=== PATIENT | female | born 1970 | race Asian ===

== ENCOUNTER 2024-05-19 00:39 | Emergency (ER) | payer MEDICAID, SELFPAY ==
[2024-05-19] VITALS (11 sets, daily range): BP systolic 116–189; BP diastolic 75–112; PULSE 74–120; RESP 16–22; TEMP 36.4–37; O2SAT 96–100; BMI 28.4
--- NOTE | 2024-05-19 00:43 | PC.NURSE ---
CHARGE NURSE AWARE OF BP 188/122.
--- NOTE | 2024-05-19 03:14 | EKG_ITS ---
[facility] Test Date: 2024-05-19 Pat Name: SHANTEL WADDELL Department: Room: - Gender: Female [employer] Worker: : 1970 Requested By: Eduardo Booker Order Number: [id number] Reading MD: Eduardo Booker Measurements Intervals [place] Rate: 104 P: 45 MI: 131 QRS: 6 QRSD: 81 T: 1 QT: 344 QTc: 453 Interpretive Statements SINUS TACHYCARDIA POSSIBLE LEFT ATRIAL ENLARGEMENT [-0.1mV P WAVE IN V1/V2] POSSIBLE LEFT VENTRICULAR HYPERTROPHY [VOLTAGE CRITERIA PLUS LAE OR QRS WIDENING] NONSPECIFIC T-WAVE ABNORMALITY Compared to ECG 02/10/2024 03:03:56 No significant changes /store/S0/[id number]/ecg/[id number].pdf
--- NOTE | 2024-05-19 03:14 | EDRME_ITS ---
Rapid Medical Screening Exam [facility] Arrival date/time: 05/19/24 00:39 53F with history of HTN presents to ED with 2 days of N/V, gen ab pain/cramping, and non-bloody diarrhea, as well as some weakness and SOB. Chief Complaint: Abdominal Pain Vital signs: Vital Signs Temperature 98.6 F 05/19/24 02:44 Pulse Rate 106 H 05/19/24 02:44 Respiratory Rate 16 05/19/24 02:44 Blood Pressure 162/112 H 05/19/24 02:44 Pulse Oximetry (%) 97 05/19/24 02:44 Oxygen Delivery Method Room Air 05/19/24 02:44
--- NOTE | 2024-05-19 03:15 | XR_ITS ---
Examination: PA chest single view Technique: Upright PA chest single view Exam date and time: May 19, 2024 at 0329 hrs. Indications: Vomiting shortness of breath nausea weakness today Findings: Normal heart size The lungs are clear. The osseous structures are intact Impression: No active disease
[2024-05-19] MEDS: METOCLOPRAMIDE 5 MG TABLET 10 MG PO (03:38)
[2024-05-19 03:48] LABS: Lactate (Lactic Acid) 2.4 mMol/L (0.4-2.0)
[2024-05-19 03:57] LABS: Basophils # (Auto) 0.1 Thou/mm3 (0.0-0.2); Basophils % (Auto) 1 % (0-2.5); Eosinophils # (Auto) 0.3 Thou/mm3 (0.0-0.5); Eosinophils % (Auto) 3 % (0-10); Hematocrit 44.5 % (36.0-46.0); Hemoglobin 15.5 g/dL (12.0-16.0); Immature Granulocytes % (Auto) 0 % (0-0); Immature Granulocytes Auto 0.02 Thou/mm3 (0.00-0.00); Lymphocytes # (Auto) 2.7 Thou/mm3 (1.0-4.8); Lymphocytes % (Auto) 31 % (10-50); Mean Corpuscular HGB Conc 34.8 g/dl (31.0-37.0); Mean Corpuscular Hemoglobin 34.6 pg (25.0-35.0); Mean Corpuscular Volume 99 fL (80-100); Monocytes # (Auto) 0.7 Thou/mm3 (0.0-0.8); Monocytes % (Auto) 8 % (0-12); Neutrophils # (Auto) 5.2 Thou/mm3 (1.8-7.7); Neutrophils % (Auto) 58 % (37-80); Nucleated Red Blood Cell % 0 /100 WBC (0); Platelet Count 255 Thou/mm3 (140-440); RDW Standard Deviation 44.8 fL (36.4-46.3); Red Blood Count 4.48 Miln/mm3 (4.00-5.20)
[2024-05-19 04:19] LABS: Alanine Aminotransferase 127 U/L (10-49); Albumin, Serum 4.6 gm/dL (3.5-5.0); Albumin/Globulin Ratio 1.4 (1.2-2.2); Alkaline Phosphatase 83 U/L (46-116); Anion Gap 21 (7-16); Aspartate Amino Transferase 245 U/L (0-34); BUN/Creatinine Ratio 20 Ratio (12-20); Bilirubin,Total 1.5 mg/dL (0.3-1.2); Blood Urea Nitrogen 16 mg/dL (9-23); Calcium 9.3 mg/dL (8.3-10.6); Calcium (Corrected) 9.3 mg/dL (8.5-10.1); Chloride 103 mMol/L (98-107); Creatinine (Component) 0.8 mg/dL (0.6-1.3); Estimated Creatinine Clearance 59.3 mL/min (>60); Globulin 3.2 gm/dL (2.3-3.5); Glucose 79 mg/dL (74-106); Lipase 41 U/L (12-53); Osmolality,Calculated 274 (275-295); Potassium 3.7 mMol/L (3.4-5.1); Sodium 137 mMol/L (136-145); Total Protein 7.8 gm/dL (5.7-8.2); Troponin I 0.038 ng/mL (0.0-0.045); eGFR > 60 See Note
[2024-05-19 04:20] LABS: Procalcitonin 0.17 ng/ml (0.0-0.49)
[2024-05-19 04:21] LABS: Carbon Dioxide 13.1 mMol/L (20.0-31.0)
[2024-05-19 04:34] LABS: Collection Type, Urine Clean Catch
[2024-05-19 04:41] LABS: Base Excess, Venous -4 (-3-3); O2 Saturation, Venous 60 % (96-97); PCO2, Venous 35 mmHg (36-56); PO2, Venous 33 mmHg (15-58); pH, Venous 7.38 (7.33-7.66)
[2024-05-19 04:46] LABS: Amphetamine/Methamp Scrn,U Negative (Negative); Barbiturate Screen,Urine Negative (Negative); Benzodiazepines Screen,Urine Negative (Negative); Benzoylecgonine Screen, Ur Negative (Negative); Fentanyl Screen,Urine Negative (Negative); Opiate Screen,Urine Negative (Negative); THC Screen,Urine Negative (Negative)
[2024-05-19 04:54] LABS: Bacteria,Urine Rare; Bilirubin,Urine Negative (Negative); Blood,Urine Negative (Negative); Clarity,Urine Clear (Clear/Hazy); Color,Urine Yellow (Lt Yel-Yel); Glucose, Urine Negative (Negative); Hyaline Casts,Urine < 1 /hpf (0-1); Ketones,Urine 1+ (Negative); Leukocyte Esterase,Urine Negative (Negative); Nitrite,Urine Negative (Negative); PH,Urine 5.5 (5.0-7.0); Protein,Urine 1+ (Neg - Trace); RBC,Urine 5 /hpf (0-3); Specific Gravity,Urine 1.031 (1.001-1.035); Squamous Epithelial Cell,Urine 2 /hpf (0-5); Urobilinogen,Urine Negative mg/dL (0.0-1.0); WBC,Urine 7 /hpf (0-5)
[2024-05-19 06:46] LABS: Reflex Lactate? Y
[2024-05-19 07:12] LABS: Lactic Acid, 3 HR 1.5 mMol/L (0.4-2.0)
[2024-05-19] MEDS: RINGERS LACTATED 1000 ML 1,000 ML 999 ML IV (09:07)
--- NOTE | 2024-05-19 14:37 | PC.NURSE ---
patient from rme to rm 19 with c/o abd. pain, n/v/d since midnight. Currently patient denies having abd. pain, however, patient states she continues to have diarrhea, patient placed in gown and new orders received by provider.
[2024-05-19] MEDS: LABETALOL INJ 5 MG/ML VIAL 20 ML 20 MG IVP (14:41)
--- NOTE | 2024-05-19 15:45 | EDNOTE_ITS ---
ED Abdominal Pain RME/HPI General Chief Complaint: Abdominal Pain Stated complaint: ABD PAIN, NAUSEA AND VOMITING X 1DAY Time seen by provider: 05/19/24 14:23 Arrival date/time: 05/19/24 00:39 RME / HPI RME / HPI narrative: 05/19/24 00:39 53F with history of HTN presents to ED with 2 days of N/V, gen ab pain/cramping, and non-bloody diarrhea, as well as some weakness and SOB. DR. KOCH MAIN ED EVALUATION: 53 year old female presents to the Emergency Department [facility] with complaints of diffuse abdominal pain with associated nausea, vomiting, non-bloody diarrhea, and generalized weakness. Symptoms are moderate. Onset of symptoms 1 day. PMHx: Hypertension Social Hx: No tobacco, alcohol, or substance use. Related Data Home Medications ?Medication ?Instructions ?Recorded ?Confirmed hydroxyzine HCl 25 mg tablet 25 mg PO TID PRN Anxiety 02/10/24 02/10/24 Allergies Allergy/AdvReac Type Severity Reaction Status Date / Time No Known Allergies Allergy Verified 02/10/24 02:46 Review of Systems Review of Systems Systems Reviewed: All systems reviewed, normal except as documented Narrative Review of Systems: GEN: No fever, no chills, no weight loss EYES: No discharge, no visual changes, no pain HEENT: No ear pain, no congestion, no sore throat PULM: No shortness of breath, no cough, no congestion CV: No chest pain, no dyspnea on exertion, no palpitations GI: + nausea, + vomiting, + diarrhea, + diffuse abdominal pain, no constipation : No frequency, no urgency and no dysuria MUSC/SKEL: No joint pain, no back pain SKIN: No rash PSYCH: No hallucinations, no depression HEME/LYMPH: No easy bleeding or bruising tendencies NEURO: + generalized weakness, no headache Past Medical History Past Medical History NEUROLOGIC: Negative Neurological Disorders, Cerebrovascular Accident, Transient Ischemic Attacks (TIA), Dementia, Alzheimer's Disease, Parkinson's Disease, Brain Tumor, Meningitis, Seizures, Epilepsy, Multiple Sclerosis, Cerebral Palsy, Amyotrophic Lateral Sclerosis (ALS/Joelle Gehrig's), Guillain-J[place] Syndrome, Spina Bifida, Paralysis, Peripheral Neuropathy, Koch's Palsy, Subdural Hematoma, Migraine, Head Trauma, Spinal Cord Injury or Traumatic Brain Injury CARDIAC: Positive Cardiac Disorders and Hypertension RESPIRATORY: Negative Chronic Obstructive Pulmonary Disease (COPD), Asthma, Bronchitis, Emphysema, Pneumonia, Pulmonary Fibrosis, Cystic Fibrosis, Tuberculosis, Pulmonary Embolism, Pulmonary Edema or Sleep Apnea GASTROINTESTINAL: Negative Gastrointestinal Disorders, Hepatitis, Cirrhosis, P ancreatitis, Celiac Disease, Gall Bladder Disease, Gastrointestinal Bleed, Esophageal Varices, Pan's Esophagus, Colitis, Ulcerative Colitis, Diverticulitis, Diverticulosis, Ulcer, Colorectal Cancer, Irritable Bowel, Crohn's Disease, Obstructive Bowel, Hiatal Hernia, Hemorrhoids or Gastroesophageal Reflux Disease GENITOURINARY: Positive Genitourinary Disorders and Kidney Stones REPRODUCTIVE: Negative Breast Cancer, Endometriosis, Genital Herpes, Gonorrhea, Pelvic Inflammatory Disease, Previous Pregnancies, Syphilis or Uterine Prolapse MUSCULOSKELETAL: Negative Musculoskeletal Disorders, Muscular Dystrophy, Myasthenia Gravis, Marfan's Syndrome, Bone Cancer, Arthritis, Rheumatoid Arthritis, Osteoporosis, Degenerative Disk Disease, Gout, Scoliosis, Carpal Tunnel Syndrome, Fibromyalgia, Fractures, Degenerative Joint Disease, Osteomyelitis or Poliovirus ENT: Negative Cataracts, Glaucoma, Blind, Retinal Detachment, Macular Degeneration, Ear Infection, Deafness, Head Trauma or Eye Prosthesis ENDOCRINE: Negative Endocrine Disorders, Diabetes Mellitus Type 1, Diabetes Mellitus Type 2, Hypoglycemia, [place]'s Syndrome, [place]'s Disease, Hyperthyroidism, Hypothyroidism, Parathyroid Disease, Pituitary Disease, Systemic Lupus Erythematosus, Syndrome of Inappropriate Antidiuretic Hormone (SIADH), Adrenal Disease or Graves' Disease HEMATOLOGIC: Negative Blood Disorders, Anemia, Leukemia, Hemophilia, Thalassemia or Sickle Cell Disease PSYCHO/SOCIAL: Positive Anxiety OTHER HISTORY: Positive Blood Transfusions; Negative Breast Cancer or Colorectal Cancer Family History FAMILY HISTORY: Negative Family Psychiatric Problems, Family Respiratory Disorders, Family Cardiac Disorders, Family Gastrointestinal Problems, Family Cancer, Family Surgery or Family Anesthesia Reaction Surgical History SURGICAL: Positive Ear Surgery and Nephrectomy (kidney stone removal) Social History SMOKING STATUS: Never smoker SUBSTANCE USE: does not use ALCOHOL: Never ED Exam Narrative Physical exam: GENERAL APPEARANCE: alert and oriented x 4, well-developed, well-nourished, no acute distress VITALS: All vitals were reviewed and the pulse ox is 99% on room air, which is normal according to my interpretation. HEENT: Normocephalic, atraumatic; pupils equal, round, reactive to light; EOMI; mucous membranes pink, moist; oropharynx clear NECK: Supple LUNGS: CTABL; no wheezes, no rales, no rhonchi HEART: Regular rate, regular rhythm; normal S1, S2; no murmurs ABDOMEN: non distended; normal BS; soft, no tenderness, no guarding, no rebound; no masses, no organomegaly, no hernia BACK: no CVA tenderness EXTREMITIES: atraumatic; no edema NEUROLOGIC: awake; alert and oriented x4; cranial nerves II-XII grossly intact; no focal sensory or motor deficits PSYCHIATRIC: appropriate mood and affect SKIN: warm, dry, normal color; no rashes Course Quality Measures none Orders Category Date Time Status EKG (ED ONLY) *Do not use* NOW Care 05/19/24 03:14 Completed Insert IV NOW Care 05/19/24 04:32 Completed EKG (ED Only) Stat Exams 05/19/24 03:14 Draft XR chest 1V portable Stat Exams 05/19/24 03:15 Completed CBC Stat Lab 05/19/24 03:20 Completed Comprehensive Metabolic Panel Stat Lab 05/19/24 03:20 Completed Drug Screen,Urine Stat Lab 05/19/24 04:28 Completed Lactate (Lactic Acid) Stat Lab 05/19/24 03:20 Completed Lactic Acid, 3 HR Stat Lab 05/19/24 07:03 Completed Lipase Stat Lab 05/19/24 03:20 Completed Procalcitonin Stat Lab 05/19/24 03:20 Completed Troponin I Stat Lab 05/19/24 03:20 Completed Urinalysis Stat Lab 05/19/24 04:28 Completed VBG [Venous Blood Gas] Stat Lab 05/19/24 03:20 Completed Labetalol IV [Trandate IV] Med 05/19/24 14:27 Discontinued 20 mg IVP X1 ONE Labetalol IV [Trandate IV] Med 05/19/24 14:57 Discontinued 20 mg IVP X1 ONE Metoclopramide [Reglan] Med 05/19/24 03:14 Discontinued 10 mg PO X1 ONE POTASSIUM CHL 10 mEq IVPB [Kcl Ivpb] Med 05/19/24 14:27 Discontinued 10 meq in 100 ml IV Q1H Ringers Lactated 1000 ml [Lactated Ringers] 1,000 ml Med 05/19/24 04:34 Discontinued IV 999 mls/hr Sodium Chloride 0.9% 1000 ml [Ns] 1,000 ml Med 05/19/24 15:38 Discontinued IV 999 mls/hr cloNIDine HCL [Catapres] Med 05/19/24 16:09 Discontinued 0.2 mg PO X1 ONE Vital Signs Vital signs: Vital Signs Temperature 98.6 F 05/19/24 02:44 Pulse Rate 106 H 05/19/24 02:44 Respiratory Rate 16 05/19/24 02:44 Blood Pressure 162/112 H 05/19/24 02:44 Pulse Oximetry (%) 97 05/19/24 02:44 Oxygen Delivery Method Room Air 05/19/24 02:44 Abdominal Pain MDM Patient data External records reviewed:: [facility] previous records (Reviewed last admission discharge dated 02/12/24, patient admitted for the following: Acute hypokalemia.) and EMS form Clinical information provided by:: patient and EMS Social determinants that could affect healthcare access:: none Patient has the following chronic illnesses:: Hypertension How is presenting disease/condition affected by chronic disease/condition?: uneffected by Evaluation data The following diagnostics were reviewed and interpreted by me:: lab results, radiology exam(s) and EKG tracing(s) (sinus tachycardia, rate 104, possible left ventricular hypertrophy, no STEMI) Lab and/or radiology exams considered but not ordered:: none Interpretation Summary: Procedure(s): XR chest 1V portable Accession Number(s): [id number] cc: Artur Madrigal MD; NO PRIMARY/FAMILY,PHYSICIAN; Eduardo Booker PA-C~ Examination: PA chest single view Technique: Upright PA chest single view Exam date and time: May 19, 2024 at 0329 hrs. Indications: Vomiting shortness of breath nausea weakness today Findings: Normal heart size The lungs are clear. The osseous structures are intact Impression: No active disease Dictated By: Artur Madrigal MD Medications / Prescriptions Medications or Prescriptions considered but not ordered:: none Medication administrations:: Medication Administration History Discontinued Medications Clonidine (Clonidine Hcl 0.1 Mg Tablet) 0.2 mg PO X1 ONE Stop: 05/19/24 16:10 Last Admin: 05/19/24 16:13 Dose: 0.2 mg Documented By: GIOVANNY Lactated Ringer's (Lactated Ringers) 1,000 mls @ 999 mls/hr IV .Q1H1M ONE Stop: 05/19/24 05:34 Last Infusion: 05/19/24 10:10 Dose: Infused Documented By: Admin: 05/19/24 09:07 Dose: 999 mls/hr Documented By: ZEINAB Potassium Chloride (Kcl Ivpb) 10 meq in 100 mls @ 100 mls/hr IV Q1H THAIS Stop: 05/19/24 16:26 Last Admin: 05/19/24 14:53 Dose: Not Given Documented By: GIOVANNY Non-Admin Reason: Cancelled by Provider Sodium Chloride (Ns) 1,000 mls @ 999 mls/hr IV .Q1H1M ONE Stop: 05/19/24 16:38 Last Infusion: 05/19/24 17:00 Dose: Infused Documented By: Admin: 05/19/24 15:46 Dose: 999 mls/hr Documented By: GIOVANNY Labetalol HCl (Labetalol Inj 5 Mg/Ml Vial 20 Ml) 20 mg IVP X1 ONE Stop: 05/19/24 14:28 Last Admin: 05/19/24 14:41 Dose: 20 mg Documented By: GIOVANNY Labetalol HCl (Labetalol Inj 5 Mg/Ml Vial 20 Ml) 20 mg IVP X1 ONE Stop: 05/19/24 14:58 Last Admin: 05/19/24 14:58 Dose: Not Given Documented By: GIOVANNY Non-Admin Reason: Duplicate Medication on eMAR Metoclopramide HCl (Metoclopramide 5 Mg Tablet) 10 mg PO X1 ONE Stop: 05/19/24 03:15 Last Admin: 05/19/24 03:38 Dose: 10 mg Documented By: ROSALVA see above Consultations Consultation(s) initiated? (list below): No Diagnosis Differential diagnosis abdominal pain: abdominal pain, gastroenteritis and other (dehydration) Most likely diagnosis given after review of the tests above:: Vomiting Transaminitis Admission Indicated Admission indicated?: not indicated Admission Request Was there a request for admission?: No Disposition Plan Disposition Plan: Discharge Discharge Attestation Discharge Attestation: The patient and all family members were given an opportunity to ask questions and understood the discharge instructions. Discharge instructions specifically effects, indications for sooner follow up or return to the emergency department, and the expected course of current diagnosis. Patient condition: Stable Discharge Plan Plan Patient Disposition: HOME (Self Care) Prescriptions/Referrals Prescriptions/Med Rec: No Action hydroxyzine HCl 25 mg Tablet 25 mg PO TID PRN (Reason: Anxiety) Referrals: No Primary/Family,Physician [Primary Care Provider] - In 1 week Problem List Clinical Impression: Vomiting, Transaminitis Patient/Caregiver Discharge Instructions Education Materials: ED Vomiting (Adult) Print Language: Estonian Stand Alone Forms: [employer] Award Info., Patient Portal Info Letter
[2024-05-19] MEDS: SODIUM CHLORIDE 0.9% 1000 ML 1,000 ML 999 ML IV (15:46)
[2024-05-19] MEDS: cloNIDine HCL 0.1 MG TABLET 0.2 MG PO (16:13)
--- NOTE | 2024-05-19 16:18 | PC.NURSE ---
patient provided with apple juice for po challenge, patient made aware to take small sips intermittently
--- NOTE | 2024-05-19 18:25 | PC.NURSE ---
patient able to tolerate apple juice without any nausea or vomiting.
== END 2024-05-19 20:13 | disposition home or self-care (01) ==
PROVIDERS: Physician Assistant; Emergency Provider Emergency Medicine
DX: R11.2 Nausea with vomiting, unspecified (principal); R74.01 Elevation of levels of liver transaminase levels; I10 Essential (primary) hypertension
CPT/HCPCS: 36415; 71045; 80053; 80307; 81001; 82803; 83605; 83690; 84132; 84145; 84484; 85025; 93005; 96360; 96361; 99284; J3490; J7030; J7120; A9270; J1920